=== PATIENT | male | born 1970 | race Caucasian/White ===

== ENCOUNTER 2020-11-24 22:55 | Emergency (ER) | payer OTHER, SELFPAY ==
--- NOTE | ~2020-11-24 | XR_ITS ---
EXAMINATION: XR ankle LT min 3V, XR tibia fibula LT 2V EXAM DATE: 11/24/2020 23:45 INDICATION: Initial encounter following injury, with pain of the left ankle, tibia/fibula. TECHNIQUE: Left ankle frontal, lateral and oblique projections obtained and reviewed. Frontal and la teral projections left tibia and fibula. There are no prior studies for comparison. FINDINGS: The left tibia/fibula and ankle mortise appears intact. Moderate size calcaneal spurs. Th ere are no acute fractures or dislocations identified. There is no subcutaneous gas. The soft tissu e is unremarkable. There are no radiopaque foreign bodies. IMPRESSION: No acute osseous findings. Reviewed, dictated and finalized at location A. IMPRESSION: No acute osseous findings. IMPRESSION: No acute osseous findings.
[2020-11-24 23:01] VITALS: BP 135/95; PULSE 67; RESP 18; TEMP 36.3; O2SAT 97
--- NOTE | 2020-11-24 23:50 | ED.EXTPRO ---
HPI - Extremity Problem General Chief complaint: Extremity Problem,Nontraumatic Stated complaint: leg pain Time Seen by Provider: 11/24/20 23:25 Source: RN notes reviewed History of Present Illness HPI Narrative: Patient presents to emergency department from home left lower leg pain. Patient states that yesterday at work he was approximately 4 feet up on a stepladder when he tripped he states he came down landing on the stepladder with his left leg he denies striking his head or any loss of consciousness he notes an abrasion and swelling in his left mid tibia with pain in his mid leg down into his ankle states he has been able to walk on the leg but does hurt to walk he denies any other trauma or injury. States he took Excedrin prior to arrival Related Data Allergies Allergy/AdvReac Type Severity Reaction Status Date / Time No Known Allergies Allergy Verified 11/24/20 23:15 Review of Systems Review of Systems: Narrative: Gen.: Denies fevers or chills Musculoskeletal: See HPI Neuro: Denies numbness, tingling, weakness Skin: Denies rash Endo: Denies DM PMFSH Past Medical History Medical History (Updated 11/25/20 @ 00:02 by Tyler Bradley DO) Patient denies significant medical history Family History Family History (System 03/28/20 @ 09:16 by Sveta Ogden) Mother Hypertension Family history of diabetes mellitus in first degree relative Father Family history of diabetes mellitus in first degree relative Family history of coronary artery disease Social History Social History Smoking status: Never smoker Alcohol intake: current Exam Narrative: Exam Narrative: APPEARANCE: No acute distress, nontoxic, resting in bed Eyes: EOMI HEENT: Normocephalic, atraumatic, RESPIRATORY: No respiratory distress MUSCULOSKELETAl: Superficial abrasion over the left anterior lateral mid tibia with some swelling and mild ecchymosis present no tenderness of the knee or hip with full range motion of both mild tenderness of the left medial ankle mentions over the anterior lateral ankle dorsalis pedis pulse 2+ neurovascular intact NEURO: Awake and alert. Following commands, speech normal, no focal deficits SKIN:: Warm, dry. Normal Color no rash or lesions Course Course Emergency Course: Discussed with patient results of workup and diagnosis. Discussed need for follow-up with primary care, proper use of medication, and reasons to return to the emergency department. Patient understands and agrees to current treatment plan Vital Signs Vital signs: Vital Signs Temperature 97.3 F L 11/24/20 23:01 Pulse Rate 67 11/24/20 23:01 Respiratory Rate 18 11/24/20 23:01 Blood Pressure 135/95 H 11/24/20 23:01 Pulse Oximetry 97 11/24/20 23:01 Temperature 97.3 F L 11/24/20 23:01 Pulse Rate 67 11/24/20 23:01 Respiratory Rate 18 11/24/20 23:01 Blood Pressure 135/95 H 11/24/20 23:01 Pulse Oximetry 97 11/24/20 23:01 MDM - Extremity (Nontraumatic) Imaging Data Attestation: I personally reviewed and interpreted this imaging study as follows: My impression: Left tib-fib reviewed by myself shows no acute fracture, left ankle reviewed by myself shows no acute fracture Discharge Plan Discharge Clinical Impression: Contusion of left leg Patient Disposition: Home, Self-Care Condition: Stable Instructions: Antibiotic Form, Contusion in Adults (ED) Additional Instructions: Return for increasing pain, numbness or tingling of the leg or any other symptoms or concern. Please keep your leg elevated at rest Prescriptions: New ibuprofen [IBU] 600 mg tablet 600 mg PO Q6H PRN (Reason: pain) Qty: 20 RF: 0 Follow-up/Referrals: David Ivory MD [Primary Care Provider] - 2 Days Time of Disposition: 00:02
== END 2020-11-25 00:17 | disposition home or self-care (01) ==
PROVIDERS: Emergency Provider Emergency Medicine; PCP Family Medicine
DX: S80.12XA Contusion of left lower leg, initial encounter (principal); W11.XXXA Fall on and from ladder, initial encounter
CPT/HCPCS: 73590; 73610; 99283

== ENCOUNTER 2023-03-24 17:43 | Emergency (ER) | payer BC, SELFPAY ==
[2023-03-24 17:52] VITALS: BP 137/101; PULSE 71; RESP 20; TEMP 36.1; O2SAT 94
[2023-03-24 17:58] VITALS: BP 137/101; PULSE 71; RESP 20; TEMP 36.1; O2SAT 94
--- NOTE | 2023-03-24 18:37 | ED.WOUNDLAC ---
HPI - Wound/Laceration General Chief Complaint: Wound/Laceration Stated Complaint: Laceration to Right Index Finger Time Seen by Provider: 03/24/23 18:30 Source: patient, family, RN notes reviewed and old records reviewed Mode of arrival: ambulatory Limitations: no limitations History of Present Illness HPI narrative: 52 year old male accompanied by presents to express care with complaints of using internal grinder to sharpened some yard kota and internal grinder got his right index dorsal finger. Patint has 3cm linear laceration to his dorsal aspect of right index finger, no acute active bleeding noted. Patient reports that he doesn't known when his last tetanus was received will update. Onset (ago): hour(s) (withing past 1 hour prior to arrival) Location: other (right index finger) Patient tetanus UTD: No Treatments prior to arrival: bandage Related Data Allergies Allergy/AdvReac Type Severity Reaction Status Date / Time No Known Allergies Allergy Verified 03/28/22 11:20 Review of Systems Review of Systems: CONSTITUTIONAL: Denies fever, chills, or sweats. CARDIOVASCULAR: Denies chest pain, palpitations, or edema. RESPIRATORY: Denies cough or dyspnea. SKIN: Reports laceration to right dorsal index finger MUSCULOSKELETAL: Denies musculoskeletal pain NEUROLOGIC: Denies numbness, or weakness. All systems reviewed & are unremarkable except as noted in HPI and below PMFSH Past Medical History Medical History Patient denies significant medical history Family History Family History Mother Hypertension Family history of diabetes mellitus in first degree relative Father Family history of diabetes mellitus in first degree relative Family history of coronary artery disease Social History Social History Smoking status: Never smoker Alcohol intake: current Alcohol use details: social Substance use: never Living arrangements: with family Occupation/Education: occupation Gender identity (if verbalized by the patient): Male Comments At time of signature, agree with nursing past medical, surgical, social and family history. There is no relevant family history pertinent to the presenting complaint Exam Narrative: GENERAL: Well-appearing, well-nourished, and in no acute distress. HEAD: Normocephalic, atraumatic. NECK: Supple.no lymphadenopathy CHEST: Clear to auscultation. No respiratory distress.SAO2 94% on room air HEART: Regular rate and rhythm. No murmur heard. Normal peripheral pulses. EXTREMITIES: Normal range of motion. No edema. SKIN: Warm, dry, no rash. Reports 3 cm linear laceration to dorsal aspect of right index finger, full mobility of right index finger noted with strong right radial pulse and brisk capillary refill of nail bed of right index finger. NEURO: No focal deficits. Alert and oriented x3. Course Course Level of Care: Express Care Visit Vital Signs Vital signs: Vital Signs Temperature 36.1 C L 03/24/23 17:52 Pulse Rate 71 03/24/23 17:52 Respiratory Rate 20 03/24/23 17:52 Blood Pressure 137/101 H 03/24/23 17:52 Pulse Oximetry 94 03/24/23 17:52 Oxygen Delivery Room Air 03/24/23 17:52 Temperature 36.1 C L 03/24/23 17:58 Pulse Rate 71 03/24/23 17:58 Respiratory Rate 20 03/24/23 17:58 Blood Pressure 137/101 H 03/24/23 17:58 Pulse Oximetry 94 03/24/23 17:58 Oxygen Delivery Room Air 03/24/23 17:58 Procedures Laceration index finger dorsal aspect: Date: 03/24/23 Time: 18:50 Site: other (index finger) Side (If applicable): right Size (cm): 3 Description: linear Depth: simple, single layer Local Anesthetic: lidocaine 1% Amount of anesthesia used (mL): 5 Pre-repair: wound explored, irrigated extensively an
[2023-03-24] MEDS: TETANUS,DIPHTHERIA,AC PERTUSSIS ADULT (0.5 ML) BOOSTRIX IM (19:22)
== END 2023-03-24 19:40 | disposition home or self-care (01) ==
PROVIDERS: Emergency Provider Registered Nurse; PCP Family Medicine
DX: S61.210A Laceration without foreign body of right index finger without damage to nail, initial encounter (principal); W31.89XA Contact with other specified machinery, initial encounter; Z23 Encounter for immunization
CPT/HCPCS: 12002; 90471; 90715; 99213; G0463

== ENCOUNTER 2023-04-29 16:44 | Outpatient (CLI) | payer BC, SELFPAY ==
--- NOTE | ~2023-04-29 | XR_ITS ---
EXAMINATION: XR knee RT 3V DATE: 04/29/2023 16:56 INDICATION: Right knee pain. TECHNIQUE: 3 views of right knee were obtained. COMPARISON: None. FINDINGS: Bone alignment is normal. No fracture. There is mild osteoarthritis of patellofemoral leonardo rtment. There is a small knee joint effusion. IMPRESSION: 1. Mild right knee osteoarthritis. 2. Small right knee joint effusion. Reviewed, dictated and finalized at location E. BALER
== END 2023-04-29 16:45 ==
LOC: MICIMG 16:45
PROVIDERS: PCP Family Medicine; Visit Provider Physician Assistant Medical
DX: M17.11 Unilateral primary osteoarthritis, right knee (principal); M25.461 Effusion, right knee
CPT/HCPCS: 73562

== ENCOUNTER 2023-04-29 17:10 | Outpatient (CLI) | payer BC, SELFPAY ==
[2023-04-29 18:07] LABS: Hematocrit 47.4 % (42.0-52.0); Hemoglobin 15.9 g/dL (14.0-18.0); Mean Corpuscular HGB Conc 33.5 g/dl (32-36); Mean Corpuscular Hemoglobin 29.4 pg (26-34); Mean Corpuscular Volume 87.6 fl (80-100); Mean Platelet Volume 10.7 fl (7.4-10.4); Platelet Count Result 260 k/mm3 (150-375); Red Blood Count 5.41 M/mm3 (4.6-6.20); Red Cell Distribution Width 14.1 % (11.5-14.5); White Blood Count 9.2 K/mm3 (4.5-10.0)
[2023-04-29 18:09] LABS: Appearance Urine Clear (Clear); Bilirubin Urine Negative (Negative); Blood Urine Negative (Negative); Color Urine Yellow (Yellow); Glucose Urine UA Negative (Negative); Ketones Urine Negative (Negative); Leukocyte Esterase Ur Negative LEU/UL (NEGATIVE); Nitrate Urine Negative (Negative); Protein Urine Negative (Negative); Specific Grav Ur 1.023 (1.001-1.035); Urobilinogen Urine 0.2 mg/dL (<2.0); pH Urine 5.5 (5.0-9.0)
[2023-04-29 18:10] LABS: Add Urine Microscopic? NO
[2023-04-29 18:41] LABS: Alanine Aminotransferase 50 U/L (6-50); Albumin Level 4.6 g/dL (3.5-5.1); Alkaline Phosphatase 57 U/L (38-126); Anion Gap 4 mmol/L (8-16); Aspartate Amino Transferase 40 U/L (17-59); Bilirubin,Total 0.7 mg/dL (0.2-1.3); Blood Urea Nitrogen 21 mg/dL (9-20); Calcium 9.3 mg/dL (8.4-10.2); Carbon Dioxide 28 mmol/L (22-30); Chloride 103 mmol/L (98-107); Cholesterol 227 mg/dL (0-200); Estimated Glomerular Filt Rate 58; Glucose 88 mg/dL (65-110); HDL Direct 61 mg/dL; Potassium 3.8 mmol/L (3.4-5.0); Sodium 135 mmol/L (137-145); Triglycerides 95 mg/dL (<150)
[2023-04-29 18:51] LABS: LDL Cholesterol Direct 131 mg/dL
[2023-04-29 19:10] LABS: Prostate Specific Antigen 0.5 ng/mL (< OR = 4.0)
== END 2023-04-29 17:11 | disposition home or self-care (01) ==
LOC: ANHLAB 17:11
PROVIDERS: PCP Family Medicine; Visit Provider Physician Assistant Medical
DX: Z00.00 Encounter for general adult medical examination without abnormal findings (principal); I10 Essential (primary) hypertension; Z12.5 Encounter for screening for malignant neoplasm of prostate
CPT/HCPCS: 36415; 80053; 80061; 81003; 84153; 84443; 85027; G0103

== ENCOUNTER 2024-07-30 08:19 | Outpatient (CLI) | payer BC, SELFPAY ==
--- NOTE | ~2024-07-30 | XR_ITS ---
EXAM: XR lumbar spine 2-3V DATE: 07/30/2024 09:26 HISTORY: S32.009A - Unspecified fracture of unspecified lumbar anna... . COMPARISON: MR L-spine 07/30/2024. FINDINGS: 5 nonrib-bearing lumbar-type vertebral bodies. Pedicles intact. Normal vertebral body alig nment. Vertebral body heights preserved. Multilevel disc space narrowing and marginal osteophytosis, severe at L5-S1. Multilevel moderate mid and lower lumbar facet arthropathy. Nondisplaced fractures o f the left L1 and L2 transverse processes. IMPRESSION: Nondisplaced L1 and L2 transverse process fractures. Multilevel degenerative disc disease , severe at L5-S1. Moderate lower lumbar facet arthropathy. Reviewed, dictated and finalized at location K. T COORDINATOR IMPRESSION: Nondisplaced L1 and L2 transverse process fractures. Multilevel deg enerative disc disease, severe at L5-S1. Moderate lower lumbar facet arthropath y.
--- NOTE | ~2024-07-30 | MR_ITS ---
EXAMINATION: MR lumbar spine wo con DATE: 07/30/2024 09:20 INDICATION: Left L1 and L2 transverse process fractures. TECHNIQUE: Magnetic resonance imaging (MRI) of the lumbar spine was performed without intravenous con trast. Sequences included sagittal T2-weighted FSE, sagittal T2-weighted FS FSE, sagittal T1-weighted FSE, and axial T2-weighted FSE. COMPARISON: Lumbar spine radiographs 07/30/2024 FINDINGS: There is 3 mm retrolisthesis of L5 on S1. There is mild chronic anterior wedging of T12 and L1 vertebral bodies. There are fractures of left L1 and L2 transverse processes with edema-like ozzy ow signal intensity. There is severely decreased disc height at L5-S1. The distal spinal cord signal intensity is normal. The conus medullaris is at L1. The following disc levels are specifically discus sed: L1-L2: The disc does not extend beyond the endplate margin. There is mild bilateral facet joint osteo arthritis. There is no neural foraminal stenosis. There is no central canal stenosis. L2-L3: The disc does not extend beyond the endplate margin. There is mild bilateral facet joint osteo arthritis. There is no neural foraminal stenosis. There is no central canal stenosis. L3-L4: The disc does not extend beyond the endplate margin. There is mild bilateral facet joint osteo arthritis. There is no neural foraminal stenosis. There is no central canal stenosis. L4-L5: The disc is bulging. There is mild bilateral facet joint osteoarthritis. There is mild right a nd moderate left neural foraminal stenosis. There is mild central canal stenosis. L5-S1: The disc is bulging and has an annular fissure. There is moderate right and mild left facet corona int osteoarthritis. There is mild bilateral neural foraminal stenosis. There is mild central canal st enosis. IMPRESSION: 1. Fractures of left L1 and L2 transverse processes. 2. Severe lower lumbar spondylosis. Reviewed, dictated and finalized at location A. ARCH RECRUITER
--- OUTSIDE RECORDS SUMMARY | 2024-07-30 08:21 | XMS_ITS | Patient Health Summary ---
Author Organization [facility] Address [address] [place] [address] Care Team Providers Care Radiologic Technology Instructor Name Role Phone David Ivory MD Primary Care Provider [phone] Note from [facility],non-owned Affiliates and Associated Physician Practices is amultiple site organization consisting of ambulatory clinics and hospital sitesin [place] and [place]. This disclosure is being madepursuant to the Care Everywhere program and may not contain all information available regarding this patient. Last updated 18.[facility] ReplySend Allergies No known active allergies Medications * Be aware that medications may not be up to date on this document. Alwaysverify current medications with the patient. * raNITIdine HCl (ZANTAC PO) * Cetirizine HCl (ZYRTEC PO) * fluticasone propionate (FLONASE) 50 MCG/ACT nasal spray(Started 12/25/2018) [place] 2 sprays into each nostril once daily * predniSONE (DELTASONE) 20 MG tablet(Started 01/03/2019) Take 1 tablet by mouth 2 times daily Active Problems No known active problems Social History Tobacco Use Types Packs/Day Years Used Date Smoking Tobacco: Never Smokeless Tobacco: Never Sex and Gender Information Value Date Recorded Sex Assigned at Not on file Gender Identity Not on file Sexual Orientation Not on file Last Filed Vital Signs Vital Sign Reading Time Taken Comments Blood Pressure 120/78 01/03/2019 3:50 PM CDT Pulse 91 01/03/2019 3:50 PM CDT Temperature 37 C (98.6 F) 01/03/2019 3:50 PM CDT Respiratory Rate 17 12/25/2018 11:55 AM CDT Oxygen Saturation 98% 01/03/2019 3:50 PM CDT Inhaled Oxygen Concentration - - Weight 102.1 kg (225 lb) 01/03/2019 3:50 PM CDT Height 190.5 cm (6' 3 ) 01/03/2019 3:50 PM CDT Body Mass Index 28.12 01/03/2019 3:50 PM CDT Procedures * STREP A SCREEN - POINT OF CARE (AMB) STL(Performed 12/25/2018) Performed for Acute sinusitis, recurrence not specified, unspecified location * STREP A SCREEN - POINT OF CARE (AMB) STL(Performed 12/07/2018) Performed for Strep throat Results * STREP A SCREEN - POINT OF CARE (AMB) STL (12/25/2018) Only the most recent of2 resultswithin the time period is included. Strep A Rapid POCT Negative Negative Strep A Internal Control Present Lot # [id number] Expiration Date 04/21/20 Throat ENTIRE THROAT (SURFACE REGION OF NECK) / Unknown 12/25/2018 Vishal Saeed [facility] DIRECT[facility] LAB - POINT OF CARE ORDERABLES Care Teams Radiologic Technology Instructor Relationship Specialty Start Date End Date David Ivory MD [address] [place] [id number] PCP - General Family Medicine 12/07/18
--- OUTSIDE RECORDS SUMMARY | 2024-07-30 08:21 | XMS_ITS | Referral Summary ---
Author Organization [facility] Address [address] [place] [address] Care Team Providers Care Yarn Examiner Name Role Phone David Ivory MD Primary Care Provider [phone] Source Comments [facility],non-owned Affiliates and Associated Physician Practices is amultiple site organization consisting of ambulatory clinics and hospital sitesin [place], [place], [place] and [place]. This disclosure is being madepursuant to the Care Everywhere program and may not contain all information available regarding this patient. Last updated 18.[facility] Allergies No known active allergies Medications * Be aware that medications may not be up to date on this document. Alwaysverify current medications with the patient. Medication Sig Dispensed Refills Start Date End Date Status raNITIdine HCl (ZANTAC PO) Active Cetirizine HCl (ZYRTEC PO) Active fluticasone propionate (FLONASE) 50 MCG/ACT nasal sprayIndications:Acut e sinusitis, recurrence not specified, unspecified location [place] 2 sprays into each nostril once daily 1 bottles 12/25/2018 Active predniSONE (DELTASONE) 20 MG tabletIndications:Cyrus matitis Take 1 tablet by mouth 2 times daily 14 tablet 01/03/2019 Active Active Problems No known active problems Social [...] Mass Index 28.12 01/03/2019 3:50 PM CDT Plan of Treatment Not on file Care Teams Yarn Examiner Relationship Specialty Start Date End Date David Ivory MD [address] [place] [address] PCP - General Family Medicine 12/07/18
--- OUTSIDE RECORDS SUMMARY | 2024-07-30 08:21 | XMS_ITS | Clinical Summary ---
Author Organization [facility] [employer] Address [address] [place] [address] Care Team Providers Care Telephone Sex Worker Name Role Phone David Ivory MD Primary Care Provider [phone] Source Comments [facility] [employer],non-owned Affiliates and Associated Physician Practices is amultiple site organization consisting of ambulatory clinics and hospital sitesin [place], [place], [place] and [place]. This disclosure is being madepursuant to the Care Everywhere program and may not contain all information available regarding this patient. Last updated 18.[facility] [employer] Allergies No known active allergies Medications * Be aware that medications may not be up to date on this document. Alwaysverify current medications with the patient. Medication Sig Dispensed Refills Start Date End Date Status raNITIdine HCl (ZANTAC PO) Active Cetirizine HCl (ZYRTEC PO) Active fluticasone propionate (FLONASE) 50 MCG/ACT nasal sprayIndications:Acut e sinusitis, recurrence not specified, unspecified location [place] 2 sprays into each nostril once daily [...] 01/03/2019 3:50 PM CDT Plan of Treatment Health Maintenance Due Date Last Done Comments COLOGUARD (AGES 45-75) - COL ON CA SCREENING 1971 COLON MONITORING 1971 COLONOSCOPY - COLON CA SCREENING 1971 CT COLONOGRAPHY - COLON CA SCREENING 1971 Colorectal Cancer Screening 1971 FIT - COLON CA SCREENING 1971 FLEX SIG - COLON CA SCREENING 1971 LIPID TESTING 1971 HIV SCREENING 10/31/1986 HEPATITIS C SCREENING 10/27/1989 DTAP/TDAP/TD VACCINES (1 - Tdap) 10/31/1990 HEPATITIS B VACCINE (1 of 3 - 19+ 3-dose series) 10/31/1990 SCREENING FOR DIABETES 12/07/2018 PNEUMOCOCCAL VACCINE 50+ (1 of 1 - PCV) 10/31/2021 ZOSTER VACCINE (1 of 2) 10/31/2021 COVID-19 VACCINE (1 - 2023-2 5 season) 2024 INFLUENZA VACCINE (#1) 2024 DEPRESSION SCREENING 06/22/2024 HIB VACCINE Aged Out No longer eligi ble based on patient's age to complete this topic HPV VACCINE Aged Out No longer eligi ble based on patient's age to complete this topic MENINGOCOCCAL (Group B) VACCINE Aged Out No longer eligible based on patient's age to complete this topic MENINGOCOCCAL VACCINE Aged Out No amy jocelyn eligible based on patient's age to complete this topic PNEUMOCOCCAL VACCINE Aged Out No long er eligible based on patient's age to complete this topic Care Teams Telephone Sex Worker Relationship Specialty Start Date End Date David Ivory MD [address] [place], [place] [id number] PCP - General Family Medicine 12/07/18
[2024-07-30 09:00] LABS: Alanine Aminotransferase 44 U/L (6-50); Albumin Level 3.9 g/dL (3.5-5.1); Alkaline Phosphatase 54 U/L (38-126); Anion Gap 4 mmol/L (4-12); Aspartate Amino Transferase 30 U/L (17-59); Bilirubin,Total 0.7 mg/dL (0.2-1.3); Blood Urea Nitrogen 18 mg/dL (9-20); Calcium 9.2 mg/dL (8.4-10.2); Carbon Dioxide 30 mmol/L (22-30); Chloride 104 mmol/L (98-107); Cholesterol 206 mg/dL (0-200); Estimated Glomerular Filt Rate > 60; Glucose 107 mg/dL (65-110); HDL Direct 55 mg/dL; Potassium 4.1 mmol/L (3.4-5.0); Sodium 138 mmol/L (137-145); Triglycerides 112 mg/dL (<150)
[2024-07-30 09:11] LABS: LDL Cholesterol Direct 126 mg/dL
[2024-07-30 09:22] LABS: Hematocrit 43.5 % (42.0-52.0); Hemoglobin 14.8 g/dL (14.0-18.0); Mean Corpuscular Hemoglobin 29.7 pg (26-34); Mean Corpuscular Volume 87.2 fl (80-100); Mean Platelet Volume 10.6 fl (7.4-10.4); Platelet Count Result 257 k/mm3 (150-375); Red Blood Count 4.99 M/mm3 (4.6-6.20); Red Cell Distribution Width 14.1 % (11.5-14.5); White Blood Count 8.1 K/mm3 (4.5-10.0)
[2024-07-30 09:31] LABS: Add Urine Microscopic? NO; Appearance Urine Clear (Clear); Bilirubin Urine Negative (Negative); Blood Urine Negative (Negative); Color Urine Yellow (Yellow); Glucose Urine UA Negative (Negative); Ketones Urine Negative (Negative); Leukocyte Esterase Ur Negative LEU/UL (Negative); Nitrate Urine Negative (Negative); Protein Urine Negative (Negative); Urobilinogen Urine 0.2 mg/dL (<2.0)
[2024-07-30 09:31] LABS: Prostate Specific Antigen 0.6 ng/mL (< OR = 4.0)
== END 2024-07-30 08:20 | disposition home or self-care (01) ==
LOC: ANHIMG 08:19
PROVIDERS: PCP Family Medicine; Visit Provider Physician Assistant Medical
DX: S32.018D Other fracture of first lumbar vertebra, subsequent encounter for fracture with routine healing (principal); S32.028D Other fracture of second lumbar vertebra, subsequent encounter for fracture with routine healing; X58.XXXD Exposure to other specified factors, subsequent encounter; M51.379 Other intervertebral disc degeneration, lumbosacral region without mention of lumbar back pain or lower extremity pain; Z00.00 Encounter for general adult medical examination without abnormal findings; I10 Essential (primary) hypertension; R51.9 Headache, unspecified; G89.29 Other chronic pain; M47.896 Other spondylosis, lumbar region
CPT/HCPCS: 36415; 72100; 72148; 80053; 80061; 81003; 84153; 84443; 85027; G0103